=== PATIENT | male | born 1980 | race Caucasian/White ===

== ENCOUNTER 2022-10-17 18:33 | Emergency (ER) | payer OTHER, BC ==
[2022-10-17 18:38] VITALS: BP 156/109; PULSE 88; RESP 18; TEMP 98.1; BMI 26.5
[2022-10-17 21:30] LABS: URINE APPEARANCE CLEAR; URINE BILIRUBIN NEGATIVE (NEGATIVE); URINE COLOR YELLOW; URINE GLUCOSE (UA) 3+ (NEGATIVE); URINE KETONE NEGATIVE (NEGATIVE); URINE LEUK ESTERASE NEGATIVE (NEGATIVE); URINE NITRITE NEGATIVE (NEGATIVE); URINE PROTEIN NEGATIVE (NEGATIVE); URINE UROBILINOGEN 0.2 mg/dL (0.2-1.0)
== END 2022-10-17 21:38 | disposition home or self-care (01) ==
LOC: JER 18:33
DX: R10.31 Right lower quadrant pain (principal)
CPT/HCPCS: 76870-TC; 81003; 87086; 99284-25

== ENCOUNTER 2023-10-22 17:40 | Emergency (ER) | payer OTHER, BC ==
[2023-10-22 17:52] VITALS: BP 134/80; PULSE 82; RESP 19; TEMP 97.9; BMI 25.8
[2023-10-22] MEDS ORDERED: IBUPROFEN 600 MG TABLET (FP) PO ONE ×2 (18:50→19:21)
== END 2023-10-22 20:03 | disposition home or self-care (01) ==
LOC: JERFT 17:40
DX: S39.012A Strain of muscle, fascia and tendon of lower back, initial encounter (principal); V49.40XA Driver injured in collision with unspecified motor vehicles in traffic accident, initial encounter; Y35.91XA Legal intervention, means unspecified, law enforcement official injured, initial encounter; Y92.9 Unspecified place or not applicable
CPT/HCPCS: 72100-TC-FY; 99283-25